=== PATIENT | female | born 1930 | race Caucasian/White ===

== ENCOUNTER 2018-09-05 08:32 | Emergency (ER) | payer MEDICARE, BC ==
[2018-09-05] MEDS ORDERED: Sodium Chloride 0.9% 10 ML Syringe FLUSH PRN (08:52)
[2018-09-05 09:28] LABS: CHLORIDE,CL 101 mmol/L (98-107); SODIUM,NA 138 mmol/L (136-145)
[2018-09-05] MEDS: Iopamidol 612 MG/ML 100 ML Bottle IVPUSH ONE (10:18)
--- NOTE | 2018-09-05 11:03 | CT ---
[id number] CT/CT Abdomen Pelvis W IV EXAM: ABDOMEN AND PELVIS CT WITH CONTRAST INDICATION: Abdominal pain with a possible incisional ventral hernia on the right. COMPARISON: None. DISCUSSION: There is a right inguinal hernia contains a mildly dilated, fluid-filled thick-walled appendix and fluid and has surrounding inflammatory changes. These findings suggest acute appendicitis and possible incarceration of the hernia. No abscess or free air. The left ovary is prominent in size and contains a couple of cystic foci the largest measuring 17 mm in diameter. 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 There are cysts in the upper pole of the right kidney measuring up to 3.5 cm in diameter. There are small cysts in the left kidney. Mild subsegmental atelectasis or scarring in the imaged lung bases. Mild cardiomegaly. Atherosclerotic plaque is seen scattered throughout the abdominal aorta and its major branches. Convex right curvature centered at the thoracolumbar junction of the spine. Grade 1 L4-L5 spondylolisthesis relating to bilateral facet degeneration. Minimal free fluid in the pelvis. The pancreas, spleen and adrenal glands are unremarkable. IMPRESSION: 1. The appendix is contained within a right inguinal hernia. The hernia sac is fluid-filled, the appendix is mildly dilated and thick-walled and appendicitis is suggested. Alternatively, this could relate to secondary inflammation of the appendix relative to an incarcerated hernia. Adis Navarro MD 09/05/18 0902 Thank you for allowing us to participate in the care of your patient.
[2018-09-05 11:36] VITALS: BP 164/108
[2018-09-05] MEDS: Sodium Chloride 0.9% 1,000 ML IV SCH (11:42)
--- NOTE | 2018-09-05 12:00 | EDM.PDOC ---
ED HPI GENERAL MEDICAL PROBLEM - General Chief Complaint: Abdominal Pain Time Seen by Provider: 09/05/18 08:32 Source of Information: Reports: Patient History Limitations: Reports: No Limitations - History of Present Illness INITIAL COMMENTS - FREE TEXT/NARRATIVE: Pt. presents to ER with a mass in her R inguinal area and abdominal pain that started yesterday. Pt. states that the discomfort is worsening and is isolated to the lower abdomen primarily. Denies any recent trauma. No fever or chills. No chest pain or shortness of breath. Pt. states that she still has her appendix. She denies any vomiting but complains of nausea. No melena, hematochezia, or hemetemesis. Onset: Today Onset Date: 09/05/18 Location: Reports: Abdomen Lower Abdomen Pain Score (Numeric/FACES): 5 - Related Data Allergies Allergy/AdvReac Type Severity Reaction Status Date / Time adhesive Allergy Other Verified 09/05/18 08:47 Cephalosporins Allergy Hives Verified 09/05/18 08:47 ipratropium bromide Allergy Hives Verified 09/05/18 08:47 [From Atrovent] raloxifene HCl [From Evista] Allergy Swelling Verified 09/05/18 08:47 Sulfa (Sulfonamide Allergy Hives Verified 09/05/18 08:47 Antibiotics) tetanus toxoid, adsorbed Allergy Hives Verified 09/05/18 08:47 alendronate sodium AdvReac Indigestion Verified 09/05/18 08:47 [From Fosamax] doxycycline AdvReac Blurred Verified 09/05/18 08:47 Vision fexofenadine HCl AdvReac Hyperactivi Verified 09/05/18 08:47 [From Lacy-D] ty pseudoephedrine HCl AdvReac Hyperactivi Verified 09/05/18 08:47 [From Lacy-D] ty environmental Allergy Other Uncoded 04/28/16 07:09 milk/dairy Allergy Other Uncoded 04/28/16 07:09 toothpaste Allergy Other Uncoded 04/28/16 07:09 vanillia, vanilla lotion and Allergy Other Uncoded 04/28/16 07:09 soap 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) AdvReac Other Uncoded 04/28/16 07:09 Home Meds: Home Meds Albuterol [Ventolin HFA] 1 puff INH Q4H PRN 11/16/15 [History] Aspirin [Halfprin] 81 mg PO BRK 11/16/15 [History] Calcium Carbonate/Vitamin D3 [Caltrate 600 + D Tablet] 1 tab PO DAILY 11/16/15 [ History] [place]/Min Oil/Linda/Wool Alcoh [Eucerin Creme] 1 applic TOP BEDTIME 11/16/15 [ History] Denosumab [Prolia] 1 ml SUBCUT ASDIRECTED 11/16/15 [History] Dextran 70/Hypromellose [Artificial Tears] 1 drop EYEBOTH Q4H PRN 11/16/15 [ History] Diltiazem HCl [Diltiazem ER] 240 mg PO DAILY 11/16/15 [History] Docusate Sodium [Colace] 100 mg PO DAILY 11/16/15 [History] Fluticasone Propionate [Flonase] 2 spray NASBOTH DAILY PRN 11/16/15 [History] LORazepam 0.5 mg PO BEDTIME PRN 11/16/15 [History] Lactobacillus Rhamnosus GG [Culturelle] 1 cap PO DAILY 11/16/15 [History] Metoprolol Succinate 50 mg PO BID 11/16/15 [History] Metoprolol Succinate [Toprol Xl] 25 mg PO BID 11/16/15 [History] Mucus Clearing Device [Aerobika] 1 inh INH BID 11/16/15 [History] Multivitamin [Daily Multiple Vitamin] 1 tab PO DAILY 11/16/15 [History] Pravastatin [Pravachol] 20 mg PO DAILY 11/16/15 [History] Sennosides [Senokot] 8.6 mg PO ASDIRECTED 11/16/15 [History] Sodium Chloride [Saline Nasal [place]] 1 spray NASBOTH Q2H PRN 11/16/15 [History] Warfarin [Coumadin] 2.5 mg PO ASDIRECTED 11/16/15 [History] Azithromycin 500 mg PO DAILY 04/28/16 [History] Meclizine [Antivert] 1 tab PO Q4H PRN 04/28/16 [History] Pantoprazole Sodium [Protonix] 40 mg PO DAILY 04/28/16 [History] Past Medical History HEENT History: Reports: Cataract, Hard of Hearing Other HEENT History: headache Cardiovascular History: Reports: Afib, Heart Murmur, High Cholesterol, Hypertension Other Cardiovascular History: carotid stenosis Respiratory History: Reports: PE Other Respiratory History: bronchiostasis. non allergic rhinitis. hemoptysis. chronic cough Gastrointestinal History: Reports: Chronic Constipation, Colon Polyp, Diverticulosis, GERD, Other (See Below) Other Gastrointestinal History: lactose intolerance. upper GI bleed. 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 fibrocystic breast disease Musculoskeletal History: Reports: Osteoarthritis, Osteoporosis Other Musculoskeletal History: non cardiac chest pain. scoliosis Neurological History: Reports: Vertigo Other Neuro History: extremity numbness Psychiatric History: Reports: Depression Other Endocrine/Metabolic History: multinodular goiter Oncologic (Cancer) History: Reports: Squamous Cell Carcinoma Other Dermatologic History: venous stasis ulcers,. hx of lichenification and lichen simplex chronicus Social & Family History - Tobacco Use Smoking Status *Q: Former Smoker Used Tobacco, but Quit: Yes Month/Year Tobacco Last Used: ED ROS GENERAL - Review of Systems Review Of Systems: See Below Constitutional: Reports: No Symptoms HEENT: Reports: No Symptoms Respiratory: Reports: No Symptoms Cardiovascular: Reports: No Symptoms Endocrine: Reports: No Symptoms GI/Abdominal: Reports: Abdominal Pain, Nausea : Reports: No Symptoms Musculoskeletal: Reports: No Symptoms Skin: Reports: No Symptoms Neurological: Reports: No Symptoms Psychiatric: Reports: No Symptoms Hematologic/Lymphatic: Reports: No Symptoms Immunologic: Reports: No Symptoms ED EXAM, GENERAL - Physical Exam Exam: See Below Exam Limited By: No Limitations General Appearance: Alert, WD/WN, No Apparent Distress Neck: Normal Inspection, Supple, Non-Tender, Full Range of Motion Respiratory/Chest: No Respiratory Distress, Lungs Clear, Normal Breath Sounds, No Accessory Muscle Use, Chest Non-Tender Cardiovascular: Normal Peripheral Pulses, Regular Rate, Rhythm, No Edema, No Gallop, No JVD, No Murmur, No Rub GI/Abdominal: Soft, No Organomegaly, No Distention, Tender (lower quadrants), Other (hyperactive bowel sounds, mass consistent with R inguinal hernia on the R side.) (Female) Exam: Deferred Rectal (Female) Exam: Deferred Back Exam: Normal Inspection, Full Range of Motion, NT Extremities: Normal Inspection, Normal Range of Motion, Non-Tender, Normal Capillary Refill, No Pedal Edema Neurological: Alert, Oriented, CN II-XII Intact, Normal Cognition, Normal Gait, Normal Reflexes, No Motor/Sensory Deficits Psychiatric: Normal Affect, Normal Mood Skin Exam: Warm, Dry, Intact, Normal Color, No Rash Lymphatic: No Adenopathy Course - Vital Signs Last Recorded V/S: Last Vital Signs Temp 37.1 C 09/05/18 08:32 Pulse 104 H 09/05/18 11:15 Resp 18 09/05/18 11:15 BP 164/108 H 09/05/18 11:15 Pulse Ox 96 09/05/18 11:15 - Orders/Labs/Meds Orders: Active Orders 24 hr Category Date Time Status Abdomen 2V AP Flat Upright [CR] Stat Exams 09/05/18 08:52 Taken Sodium Chloride 0.9% [Normal Saline] 1,000 ml Med 09/05/18 11:30 Active IV ASDIRECTED Sodium Chloride 0.9% [Saline Flush] Med 09/05/18 08:52 Active 10 ml FLUSH ASDIRECTED PRN Peripheral IV Insertion Adult [OM.PC] Routine Oth 09/05/18 08:53 Ordered Medication Orders Sodium Chloride (Normal Saline) 1,000 mls @ 125 mls/hr IV ASDIRECTED ASAD Last Admin: 09/05/18 11:42 Dose: 125 mls/hr Sodium Chloride (Saline Flush) 10 ml FLUSH ASDIRECTED PRN PRN Reason: Keep Vein Open Labs: Laboratory Tests 09/05/18 09/05/18 09/05/18 Range/Units 08:59 08:59 08:59 WBC 10.6 H (4.0-10.0) x10^3/uL RBC 3.91 L (4.00-5.50) x10^6/uL Hgb 12.3 (12.0-16.0) g/dL Hct 36.7 (33.0-47.0) % MCV 93.9 H (78.0-93.0) fL MCH 31.5 (26.0-32.0) pg MCHC 33.5 (32.0-36.0) g/dL RDW Coeff of Daryl 13.7 (10.0-15.0) % Plt Count 238 (130-400) x10^3/uL Neut % (Auto) 84.0 H (50.0-80.0) % Lymph % (Auto) 10.0 L (25.0-50.0) % Wilkes % (Auto) 5.1 (2.0-11.0) % Eos % (Auto) 0.6 (0.0-4.0) % Baso % (Auto) 0.3 (0.2-1.2) % PT 17.9 H (9.6-11.4) SEC INR 1.7 L (2.0-3.5) Sodium 138 (136-145) mmol/L Potassium 4.0 (3.5-5.1) mmol/L Chloride 101 (98-107) mmol/L Carbon Dioxide 29 (21-32) mmol/L Anion Gap 12.0 (10-20) mmol/L BUN 13 (7-18) mg/dL Creatinine 0.8 (0.55-1.02) mg/dL Est Cr Clr Drug Dosing TNP Estimated GFR (MDRD) > 60 Glucose 118 H (74-106) mg/dL Calcium 9.1 (8.5-10.1) mg/dL Corrected Calcium 9.50 (8.5-10.1) mg/dL Phosphorus 4.0 (2.6-4.7) mg/dL Magnesium 1.7 L (1.8-2.4) mg/dL Total Bilirubin 1.0 (0.2-1.0) mg/dL AST 20 (15-37) U/L ALT 22 (14-59) U/L Alkaline Phosphatase 77 (46-116) U/L Total Protein 7.2 (6.4-8.2) g/dL Albumin 3.5 (3.4-5.0) g/dL Globulin 3.7 Albumin/Globulin Ratio 0.95 Urine Color (YELLOW) Urine Appearance (CLEAR) Urine pH (5.0-8.0) Ur Specific [place] Urine Protein (NEGATIVE) mg/dL Urine Glucose (UA) (NEGATIVE) mg/dL Urine Ketones (NEGATIVE) mg/dL Urine Occult Blood (NEGATIVE) Urine Nitrite (NEGATIVE) Urine Bilirubin (NEGATIVE) Urine Urobilinogen (0.2) EU/dL Ur Leukocyte Esterase (NEGATIVE) Urine RBC (NOT SEEN) /HPF Urine WBC (NOT SEEN) /HPF Ur Squamous Epith Cells (NEGATIVE) /HPF Urine Bacteria (NEGATIVE) /HPF Urine Mucus (NEGATIVE) /LPF 09/05/18 Range/Units 09:07 WBC (4.0-10.0) x10^3/uL RBC (4.00-5.50) x10^6/uL Hgb (12.0-16.0) g/dL Hct (33.0-47.0) % MCV (78.0-93.0) fL MCH (26.0-32.0) pg MCHC (32.0-36.0) g/dL RDW Coeff of Daryl (10.0-15.0) % Plt Count (130-400) x10^3/uL Neut % (Auto) (50.0-80.0) % Lymph % (Auto) (25.0-50.0) % [place] % (Auto) (2.0-11.0) % Eos % (Auto) (0.0-4.0) % Baso % (Auto) (0.2-1.2) % PT (9.6-11.4) SEC INR (2.0-3.5) Sodium (136-145) mmol/L Potassium (3.5-5.1) mmol/L Chloride (98-107) mmol/L Carbon Dioxide (21-32) mmol/L Anion Gap (10-20) mmol/L BUN (7-18) mg/dL Creatinine (0.55-1.02) mg/dL Est Cr Clr Drug Dosing Estimated GFR (MDRD) Glucose (74-106) mg/dL Calcium (8.5-10.1) mg/dL Corrected Calcium (8.5-10.1) mg/dL Phosphorus (2.6-4.7) mg/dL Magnesium (1.8-2.4) mg/dL Total Bilirubin (0.2-1.0) mg/dL AST (15-37) U/L ALT (14-59) U/L Alkaline Phosphatase (46-116) U/L Total Protein (6.4-8.2) g/dL Albumin (3.4-5.0) g/dL Globulin Albumin/Globulin Ratio Urine Color Yellow (YELLOW) Urine Appearance Slightly cloudy H (CLEAR) Urine pH 7.0 (5.0-8.0) Ur Specific [place] 1.020 Urine Protein Trace H (NEGATIVE) mg/dL Urine Glucose (UA) Negative (NEGATIVE) mg/dL Urine Ketones Negative (NEGATIVE) mg/dL Urine Occult Blood Moderate H (NEGATIVE) Urine Nitrite Negative (NEGATIVE) Urine Bilirubin Negative (NEGATIVE) Urine Urobilinogen 0.2 (0.2) EU/dL Ur Leukocyte Esterase Negative (NEGATIVE) Urine RBC 20-30 H (NOT SEEN) /HPF Urine WBC 0-5 (NOT SEEN) /HPF Ur Squamous Epith Cells Few H (NEGATIVE) /HPF Urine Bacteria Few H (NEGATIVE) /HPF Urine Mucus Few H (NEGATIVE) /LPF Meds: Medications Generic Name Dose Route Start Last Admin Trade Name Freq PRN Reason Stop Dose Admin Sodium Chloride 1,000 mls @ 125 mls/hr 09/05/18 11:30 09/05/18 11:42 Normal Saline IV 125 mls/hr ASDIRECTED ASAD Administration Sodium Chloride 10 ml 09/05/18 08:52 Saline Flush FLUSH ASDIRECTED PRN Keep Vein Open Discontinued Medications Generic Name Dose Route Start Last Admin Trade Name Freq PRN Reason Stop Dose Admin Piperacillin Sod/Tazobactam 100 mls @ 200 mls/hr 09/05/18 11:21 Sod 3.375 gm/ Sodium Chloride IV 09/05/18 11:50 STAT ONE Phytonadione 10 mg/ Sodium 101 mls @ 300 mls/hr 09/05/18 11:35 09/05/18 11:43 Chloride IV 09/05/18 11:54 300 mls/hr ONETIME ONE Administration Iopamidol 100 ml 09/05/18 10:13 09/05/18 10:18 Isovue-300 (61%) IVPUSH 09/05/18 10:14 100 ml ONETIME ONE Administration - Radiology Interpretation Free Text/Narrative:: CT abdomen and pelvis consistent with inguinal hernia with incarceration of the appendix. Departure - Departure Time of Disposition: 12:01 Disposition: DC/Tfer to Acute Hospital 02 Condition: Serious Clinical Impression: Appendicitis - Discharge Information Referrals: Noemy Velasquez DO [Primary Care Provider] - Forms: ED Department Discharge, Interfacility Transfer EMTALA - My Orders Last 24 Hours: My Active Orders 09/05/18 08:52 Abdomen 2V AP Flat Upright [CR] Stat Sodium Chloride 0.9% [Saline Flush] 10 ml FLUSH ASDIRECTED PRN 09/05/18 08:53 Peripheral IV Insertion Adult [OM.PC] Routine 09/05/18 11:30 Sodium Chloride 0.9% [Normal Saline] 1,000 ml IV ASDIRECTED - Assessment/Plan Last 24 Hours: My Active Orders 09/05/18 08:52 Abdomen 2V AP Flat Upright [CR] Stat Sodium Chloride 0.9% [Saline Flush] 10 ml FLUSH ASDIRECTED PRN 09/05/18 08:53 Peripheral IV Insertion Adult [OM.PC] Routine 09/05/18 11:30 Sodium Chloride 0.9% [Normal Saline] 1,000 ml IV ASDIRECTED Plan: Pt. will be transferred to [facility] in [place]. I spoke with Dr. Teresa who accepts the patient in transfer. She is anticoagulated but is subtheraputic with INR of 1.7. Pt. was given 10mg IV vit K. She was also started on zosyn 3.375gm IV as well. All questions were answered. Images pushed to [facility] P[facility].
[2018-09-05] MEDS: Piperacillin/Tazobactam 3.375 GM in Sodium Chloride 0.9% 100 ML IV ONE (12:05)
--- NOTE | 2018-09-06 09:03 | CR ---
[id number] RAD/RAD Abd Flat and Upright 2V Exam: RAD Abd Flat and Upright 2V Clinical Data: ABDOMINAL PAIN COMPARISON: CORRELATION IS MADE WITH THE CAT SCAN OBTAINED TODAY. FINDINGS: There is a moderate ileus. There is no free air. Vascular calcifications are seen. IMPRESSION: MODERATE ILEUS. Jose Smith MD 09/06/18 0901 Thank you for allowing us to participate in the care of your patient.
== END 2018-09-05 12:14 | disposition short-term general hospital (02) ==
LOC: VM.ED 08:32
DX: K37 Unspecified appendicitis (principal); I10 Essential (primary) hypertension; Z88.8 Allergy status to other drugs, medicaments and biological substances; Z91.09 Other allergy status, other than to drugs and biological substances; Z91.011 Allergy to milk products; Z79.82 Long term (current) use of aspirin; Z79.01 Long term (current) use of anticoagulants; Z79.899 Other long term (current) drug therapy; Z88.1 Allergy status to other antibiotic agents; Z88.7 Allergy status to serum and vaccine; Z87.891 Personal history of nicotine dependence
CPT/HCPCS: 36415; 74019; 74177; 80053; 81001; 83735; 84100; 85025; 85610; 96365; 96375; 99285; J2543; J3430; J7030; J7050; Q9967